=== PATIENT | male | born 1940 | race Caucasian/White ===

== ENCOUNTER → 2021-12-27 | Outpatient (CLI) | payer MEDICARE, OTHER | LOC: WCC 08:04 | DX: E11.621 Type 2 diabetes mellitus with foot ulcer (principal); E11.51 Type 2 diabetes mellitus with diabetic peripheral angiopathy without gangrene; I70.245 Atherosclerosis of native arteries of left leg with ulceration of other part of foot; L97.526 Non-pressure chronic ulcer of other part of left foot with bone involvement without evidence of necrosis; I70.201 Unspecified atherosclerosis of native arteries of extremities, right leg; D50.9 Iron deficiency anemia, unspecified; I48.19 Other persistent atrial fibrillation; J44.9 Chronic obstructive pulmonary disease, unspecified; I10 Essential (primary) hypertension; Z95.0 Presence of cardiac pacemaker; Z85.51 Personal history of malignant neoplasm of bladder; Z85.46 Personal history of malignant neoplasm of prostate; I25.10 Atherosclerotic heart disease of native coronary artery without angina pectoris; Z87.891 Personal history of nicotine dependence; Z79.01 Long term (current) use of anticoagulants; Z79.4 Long term (current) use of insulin | CPT/HCPCS: G0463 ==